=== PATIENT | female | born 2005 | race Caucasian/White ===

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

== ENCOUNTER 2024-05-11 18:20 | Emergency (ER) | payer BC, SELFPAY ==
[2024-05-11 18:35] VITALS: BP 160/97; PULSE 97; RESP 20; TEMP 37.6; O2SAT 97
--- NOTE | 2024-05-11 18:45 | ED.URI ---
HPI - URI/Sore Throat General Chief Complaint: Upper Respiratory Infection Stated Complaint: Cough/SOB/Chest Wall Pain Source: patient, RN notes reviewed and old records reviewed Mode of arrival: ambulatory Limitations: no limitations History of Present Illness HPI Narrative: Patient presents with complaints of cough for 6 days. She reports that the cough is becoming increasingly more productive and she has began to notice some wheezing. She did have a fever at the onset of symptoms, states this has resolved. Finally, she is also having some left ear pain. States that this is a new development. She does mention that her blood pressure has been elevated while she has been ill, states that she does not typically have elevated blood pressure. She shares that she plans on discussing this problem with her primary care provider. She has been taking [id number] medications for her symptoms with moderate relief Related Data Home Medications ?Medication ?Instructions ?Recorded ?Confirmed ?Last Taken ?Type bupropion HCl 150 mg tablet,12 hr 150 mg PO DAILY 07/12/22 07/12/22 Unknown History sustained-release bupropion HCl 75 mg tablet 75 mg PO DAILY 07/12/22 07/12/22 Unknown History ergocalciferol (vitamin D2) 1,250 1,250 mcg PO WEEKLY 07/12/22 07/12/22 Unknown History mcg (50,000 unit) capsule fluoxetine 40 mg capsule 40 mg PO DAILY 07/12/22 07/12/22 Unknown History norgestrel 0.3 mg-ethinyl 1 tablet PO DAILY 07/12/22 07/12/22 Unknown History estradiol 30 mcg tablet (Cryselle (28)) ondansetron HCl 8 mg tablet 8 mg PO Q8-10H PRN Nausea And 07/12/22 07/12/22 Unknown History Vomiting Allergies Allergy/AdvReac Type Severity Reaction Status Date / Time No Known Allergies Allergy Mild Verified 05/11/24 18:42 Review of Systems Review of Systems: All systems reviewed & are unremarkable except as noted in HPI and below Constitutional: Constitutional: Reports no additional constitutional complaints, Reports fever(s) and Reports lethargy ENT: Reports system reviewed and no additional complaints, except as documented Cardiovascular: Cardiovascular: Reports no additional cardiovascular complaints Respiratory: Respiratory: Reports no additional respiratory complaints, Reports chest congestion, Reports cough, Reports excessive phlegm production, Reports pain with cough and Reports wheezing Gastrointestinal: Gastrointestinal: Reports no additional gastrointestinal complaints Exam Const: General: cooperative, no acute distress, alert and awake Orientation/consciousness: oriented to person, oriented to place and oriented to time HENMT: Head: normal to inspection Ears: TM abnormal bulging on the left and erythematous on the left Mouth: Yes moist mucous membranes Resp: Effort & Inspection: normal respiratory effort and able to speak in complete sentences Auscultation: clear to auscultation bilaterally, no crackles, no rales, no rhonchi and wheezes expiratory wheezes Cardio: Palpation: normal PMI Rate: regular rate Rhythm: regular rhythm Heart sounds: S1 normal heart sound present and S2 normal heart sound present Neuro: General: oriented to person, oriented to place and oriented to time Cranial nerves: Yes CN's II-XII intact bilaterally Psych: Appearance: grossly normal Thought process: Normal thought process present Insight: Good insight present (Psych) Judgement: Good judgement present (Psych) Course Course Level of Care: Express Care Visit Vital Signs Vital signs: Vital Signs Temperature 99.6 F 05/11/24 18:35 Pulse Rate 97 05/11/24 18:35 Respiratory Rate 20 05/11/24 18:35 Blood Pressure 160/97 H 05/11/24 18:35 Pulse Oximetry 97 05/11/24 18:35 Oxygen Delivery Room Air 05/11/24 18:35 Temperature 99.6 F 05/11/24 18:35 Pulse Rate 97 05/11/24 18:35 Respiratory Rate 20 05/11/24 18:35 Blood Pressure 160/97 H 05/11/24 18:35 Pulse Oximetry 97 05/11/24 18:35 Oxygen Delivery Room Air 05/11/24 18:35 MDM - URI/Sore Throat MDM Narrative Medical decision making narrative: Patient with URI symptoms and otitis media. She is nontoxic appearing, stable for discharge home with p.o. antibiotic therapy as well as steroids and bronchodilator Discharge instructions reviewed with patient, as well as provided in writing per nursing staff. The instructions also include specific and strict return/GO TO THE ER as well as f/u information. All questions have been answered, and the patient deny any further questions with discharge and discharge plan. Some parts of this dictation were generated by voice recognition software and may contain typographical and/or grammatical inaccuracies. Differential Diagnosis Differential diagnosis: Likely upper respiratory infection, viral infection, bronchitis and influenza Medical Records Attestation: I reviewed the patient's medical records. Discharge Plan Discharge Clinical Impression: Bronchitis Otitis media Qualifiers: Otitis media type: suppurative Chronicity: acute Laterality: left Recurrence: not specified as recurrent Spontaneous tympanic membrane rupture: without spontaneous rupture Qualified Code(s): H66.002 - Acute suppurative otitis media without spontaneous rupture of ear drum, left ear Patient Disposition: Home, Self-Care Condition: Stable Instructions: Antibiotic Form, Acute Bronchitis (ED), Earache (ED) Additional Instructions: Take medications as prescribed. Follow with primary care provider. Emergency department for new or worse symptoms Patient Language: [place] Prescriptions: New amoxicillin-pot clavulanate 875-125 mg tablet 1 tablet PO Q12H Qty: 20 0RF prednisone 50 mg tablet 50 mg PO DAILY Qty: 5 0RF albuterol sulfate [Ventolin HFA] 90 mcg/actuation HFA aerosol inhaler 2 puff inhalation QID PRN (Reason: shortness of breath or wheezing) Qty: 8.5 0RF No Action fluoxetine 40 mg capsule 40 mg PO DAILY bupropion HCl 150 mg tablet sustained-release 12 hr 150 mg PO DAILY Cryselle (28) 0.3-30 mg-mcg tablet 1 tablet PO DAILY ondansetron HCl 8 mg tablet 8 mg PO Q8-10H PRN (Reason: Nausea And Vomiting) bupropion HCl 75 mg tablet 75 mg PO DAILY ergocalciferol (vitamin D2) 1,250 mcg (50,000 unit) capsule 1,250 mcg PO WEEKLY amoxicillin 875 mg tablet 875 mg PO TID 10 Days Qty: 30 0RF Follow-up/Referrals: Aydin,MARLENE Martini [Primary Care Provider] - 2 Weeks Stand Alone Forms: Work/School Release IP Time of Disposition: 18:58
== END 2024-05-11 19:00 | disposition home or self-care (01) ==
PROVIDERS: Emergency Provider Nurse Practitioner Family; PCP Nurse Practitioner Family
DX: J40 Bronchitis, not specified as acute or chronic (principal); H66.002 Acute suppurative otitis media without spontaneous rupture of ear drum, left ear
CPT/HCPCS: 99213; G0463